=== PATIENT | male | born 1960 | race Caucasian/White ===

== ENCOUNTER 2021-07-04 07:23 | Day surgery (SDC) | payer MEDICAID ==
[2021-07-04] MEDS ORDERED: fentaNYL 100 MCG/2 ML SDV ONE ×2 (07:25→07:26)
[2021-07-04] MEDS ORDERED: Propofol 200 MG/20 ML SDV ONE ×2 (07:25→07:26)
[2021-07-04] MEDS ORDERED: Midazolam 1 MG/ML 2 ML SDV ONE ×2 (07:25→07:26)
[2021-07-04] MEDS ORDERED: Sodium Chloride 0.9% 1,000 ML IV SCH (08:00)
--- NOTE | 2021-07-04 13:46 | OR ---
DATE OF PROCEDURE: 07/04/2021 SURGEON: Akash Cotto MD PROCEDURE: Colonoscopy. FINDINGS: 1. Transverse colon polyp, approximately 5 mm, completely removed using cold biopsy forceps. 2. Endoscopic band of internal hemorrhoids. PREOPERATIVE DIAGNOSIS: Positive FIT test. POSTOPERATIVE DIAGNOSIS: Positive FIT test. COMPLICATIONS: None. EDGE STITCHER: None. ANESTHESIA: MAC. RISKS: Risks, benefits, alternatives, and limitations including, but not limited to infection, bleeding, perforation, false positives, and false negatives were explained to the patient and he wished to proceed. PROCEDURE IN DETAIL: The patient was placed in left lateral decubitus position. Rectal exam was performed without abnormality. Scope was introduced and advanced atraumatically to the ileocecal valve. A photo was taken of the appendiceal orifice. Scope was brought back to the ascending, transverse, descending colon, and retroflexed. In the transverse colon, the aforementioned polyp was identified and completely removed. No other abnormalities were noted. The scope was then brought back up to the cecum. Again, a second time, no abnormalities were noted. On retroflexion, the patient had a very prominent internal hemorrhoid, which we did discuss with the patient preoperatively as a possibility and he has elected for banding, which we then proceeded to endoscopically band without difficulty. This was the largest hemorrhoid. The patient tolerated the procedure well. Akash Cotto MD /[id number]
== END 2021-07-04 10:53 | disposition home or self-care (01) ==
LOC: JP.SDS 07:23
PROVIDERS: ATTEND Surgery
DX: D12.3 Benign neoplasm of transverse colon (principal); K62.89 Other specified diseases of anus and rectum; K64.8 Other hemorrhoids; I10 Essential (primary) hypertension; F17.200 Nicotine dependence, unspecified, uncomplicated
CPT/HCPCS: 45380; 45398; 88305; J2250; J2704; J3010; J7030